=== PATIENT | female | born 1990 | race Caucasian/White ===

== ENCOUNTER 2020-02-28 14:42 | Outpatient (CLI) | payer OTHER, SELFPAY | END 2020-02-28 14:43 | disposition home or self-care (01) | PROVIDERS: PCP Nurse Practitioner Family; Visit Provider Specialist | DX: D22.71 Melanocytic nevi of right lower limb, including hip (principal) | CPT/HCPCS: 88305 ==

== ENCOUNTER 2021-04-12 07:16 | Outpatient (CLI) | payer OTHER, SELFPAY ==
[2021-04-12 08:30] LABS: Alanine Aminotransferase 29 U/L (14-59); Albumin Level 3.8 g/dL (3.4-5.0); Alkaline Phosphatase 74 U/L (46-116); Anion Gap 6 mmol/L (8-16); Aspartate Amino Transferase 22 U/L (15-37); Bilirubin,Total 1.4 mg/dL (0.00-1.00); Blood Urea Nitrogen 15 mg/dL (7-18); Calcium 9.2 mg/dL (8.5-10.1); Carbon Dioxide 29 mmol/L (21-32); Chloride 104 mmol/L (98-108); Cholesterol 163 mg/dL (0-200); Estimated Glomerular Filt Rate > 60; Glucose 83 mg/dL (70-99); HDL Direct 49 mg/dL (40-60); LDL Cholesterol Calculated 92 mg/dL (<130); Osmolality Calculated 287 mOsm/kg (285-295); Potassium 4.3 mmol/L (3.5-5.1); Sodium 139 mmol/L (136-145); Total Protein 7.2 g/dL (6.4-8.2); Triglycerides 109 mg/dL (0-150)
== END 2021-04-12 07:17 | disposition home or self-care (01) ==
LOC: CHSLAB 07:18
PROVIDERS: PCP Nurse Practitioner Family; Visit Provider Nurse Practitioner Family
DX: Z00.00 Encounter for general adult medical examination without abnormal findings (principal)
CPT/HCPCS: 36415; 80053; 80061